=== PATIENT | female | born 1935 | race Two or more races ===

== ENCOUNTER → 2017-09-12 | Outpatient (CLI) | payer MEDICARE ==
[2017-09-12 09:09] LABS: ADD MAN DIFF? NO
[2017-09-12 09:13] LABS: BASO % 0 % (0-3); EOS % 1 % (0-3); HEMATOCRIT 35.6 % (36.0-47.0); HEMOGLOBIN 12.2 g/dL (12.0-15.5); LYMPH # 1.1 x10^3/uL (1.0-4.8); LYMPH % 23 % (24-48); MEAN CORPUSCULAR HEMOGLOBIN 33 pg (25-35); MEAN CORPUSCULAR HGB CONC 34 g/dL (31-37); MEAN CORPUSCULAR VOLUME 97 fL (79-100); MONO # 0.4 x10^3/uL (0.0-1.1); MONO % 9 % (0-9); NEUT # 3.3 x10^3uL (1.8-7.7); NEUT % 67 % (31-73); PLATELET COUNT 244 x10^3/uL (140-400); RED BLOOD COUNT 3.69 x10^6/uL (3.50-5.40); RED CELL DISTRIBUTION WIDTH 13.3 % (11.5-14.5); WHITE BLOOD COUNT 4.9 x10^3/uL (4.0-11.0)
[2017-09-12 09:29] LABS: ALBUMIN 3.3 g/dL (3.4-5.0); ANION GAP 9 (6-14); BLOOD UREA NITROGEN 26 mg/dL (7-20); CALCIUM 8.8 mg/dL (8.5-10.1); CARBON DIOXIDE 28 mmol/L (21-32); CHLORIDE 105 mmol/L (98-107); CREATININE 1.3 mg/dL (0.6-1.0); GFR 39.3; GLUCOSE 126 mg/dL (70-99); POTASSIUM 4.5 mmol/L (3.5-5.1); SODIUM 142 mmol/L (136-145)
[2017-09-12 09:34] LABS: INR 1.8 (0.8-1.1); PARTIAL THROMBOPLASTIN TIME 37 SEC (24-38); PROTHROMBIN TIME PATIENT 20.5 SEC (11.7-14.0)
[2017-09-12 10:12] LABS: BILIRUBIN,URINE NEGATIVE (NEG); CLARITY,URINE CLEAR; COLOR,URINE YELLOW; GLUCOSE,URINE NEGATIVE (NEG); NITRITE,URINE NEGATIVE (NEG); PROTEIN,URINE NEGATIVE (NEG-TRACE)
[2017-09-12 10:34] LABS: RBC,URINE 0 /HPF (0-2)
[2017-09-12 10:35] LABS: BACTERIA,URINE 0 /HPF (0-FEW); SQUAMOUS EPITHELIAL CELL,UR FEW /LPF
[2017-09-12 11:33] LABS: SEDIMENTATION RATE 50 (0-25)
[2017-09-15 11:58] LABS: MRSA BY PCR Negative (Negative)
== END | disposition home or self-care (01) ==
LOC: SURGPAT 13:23
DX: Z01.818 Encounter for other preprocedural examination (principal); I10 Essential (primary) hypertension; I70.0 Atherosclerosis of aorta; E55.9 Vitamin D deficiency, unspecified; R79.1 Abnormal coagulation profile
CPT/HCPCS: 36415; 71046; 80048; 81001; 82040; 82306; 85025; 85610; 85651; 85730; 87086

== ENCOUNTER 2017-09-27 05:32 | Inpatient (IN) | payer MEDICARE ==
[~2017-09-27 05:32] MED LIST: TOBRAMYCIN POWDER 1.2 GM VIAL.; VANCOMYCIN 1 GM VIAL.
[2017-09-27] MEDS ORDERED: CLINDAMYCIN 900MG PREMIX 0 ML IV (06:17)
[2017-09-27] MEDS ORDERED: CLINDAMYCIN 900MG PREMIX 50 ML IV (06:30)
[2017-09-27] MEDS ORDERED: ACETAMINOPHEN 500 MG TABLET PO (06:30)
[2017-09-27] MEDS: IV RINGERS,LACTATED 1000ML 1,000 ML IV (06:41)
[2017-09-27] MEDS: ACETAMINOPHEN 500 MG TABLET PO (06:43)
[2017-09-27] MEDS ORDERED: DEXAMETHASONE SOD PHOS 20 MG/5 ML VIAL. (07:00)
[2017-09-27] MEDS ORDERED: fentaNYL PF VIAL 100 MCG/2 ML VIAL ×3 (07:00→09:57)
[2017-09-27] MEDS ORDERED: ONDANSETRON PF 4 MG/2 ML VIAL. (07:00)
[2017-09-27] MEDS ORDERED: LIDOCAINE 2% PF Vial for OR 5 ML VIAL. (07:00)
[2017-09-27] MEDS ORDERED: FAMOTIDINE 20 MG/2 ML VIAL (07:00)
[2017-09-27] MEDS ORDERED: ROCURONIUM 50 MG/5 ML VIAL. (07:00)
[2017-09-27] MEDS ORDERED: LIDOCAINE 1% PF 2 ML VIAL. ID (07:00)
[2017-09-27] MEDS ORDERED: PROPOFOL 20 ML IV (07:00)
[2017-09-27] MEDS ORDERED: MORPHINE SULFATE 2 MG/ML DISP.SYRIN. IV (07:00)
[2017-09-27] MEDS ORDERED: HYDROmorphone 2 MG/ML VIAL IV (07:00)
[2017-09-27] MEDS ORDERED: ePHEDrine PF IN SALINE 50 MG/5 ML DISP.SYRIN IV (07:37)
[2017-09-27] MEDS: TRANEXAMIC ACID 1,000 MG in IV NORMAL SALINE 50ML 50 ML INJ ×2 (07:40→08:48)
[2017-09-27] MEDS: VANCOMYCIN 1 GM VIAL. TP (07:58)
[2017-09-27] MEDS: TOBRAMYCIN POWDER 1.2 GM VIAL. TP (07:58)
[2017-09-27] MEDS ORDERED: hydrALAZINE 20 MG/ML VIAL. (08:13)
[2017-09-27] MEDS ORDERED: NEOSTIGMINE METHYLSULFATE 5 MG/5 ML SYRINGE. (09:09)
[2017-09-27] MEDS ORDERED: GLYCOPYRROLATE 1 MG/5 ML VIAL. (09:09)
[2017-09-27] MEDS ORDERED: DESFLURANE > 120 MINUTES IH (09:13)
[2017-09-27] MEDS ORDERED: ZOLPIDEM 5 MG TABLET. PO (09:45)
[2017-09-27] MEDS ORDERED: MORPHINE SULFATE 4 MG/ML DISP.SYRIN. IV ×2 (09:45)
[2017-09-27] MEDS ORDERED: diphenhydrAMINE 50 MG/ML VIAL IV (09:45)
[2017-09-27] MEDS ORDERED: oxyCODONE/APAP 5/325 1 TAB TABLET PO (09:45)
[2017-09-27] MEDS ORDERED: ACETAMINOPHEN 325 MG TABLET. PO (09:45)
[2017-09-27] MEDS ORDERED: METOCLOPRAMIDE HCL 10 MG/2 ML VIAL. IV (09:45)
[2017-09-27] MEDS ORDERED: LORazepam 0.5 MG TABLET PO (09:45)
[2017-09-27] MEDS ORDERED: 0.9 % SODIUM CHLORIDE 10 ML DISP.SYRIN. IV (09:45)
[2017-09-27] MEDS ORDERED: traMADol 50 MG TABLET PO (09:45)
[2017-09-27] MEDS ORDERED: fentaNYL PF VIAL 100 MCG/2 ML VIAL IV ×2 (09:45)
[2017-09-27] MEDS ORDERED: CALCIUM CARBONATE 500 MG TAB.CHEW PO (09:45)
[2017-09-27] MEDS ORDERED: DEXTROSE 50% 25 GM / 50ML DISP.SYRIN. IV (09:45)
[2017-09-27] MEDS ORDERED: MORPHINE SULFATE 10 MG/ML VIAL. IV (09:45)
[2017-09-27] MEDS: fentaNYL PF VIAL 100 MCG/2 ML VIAL IV ×4 (10:10→12:48)
[2017-09-27] MEDS ORDERED: PROCHLORPERAZINE 10 MG/2 ML VIAL. (10:30)
[2017-09-27 10:36] LABS: POC GLUCOSE 198 mg/dL (70-99)
[2017-09-27] MEDS: PROCHLORPERAZINE 10 MG/2 ML VIAL. IV (10:48)
[2017-09-27] MEDS ORDERED: CLINDAMYCIN PREMIX 900 MG/50 ML BAG IV (12:00)
[2017-09-27] MEDS: PROPAFENONE SR 225 MG CAP.ER.12H. PO ×2 (14:00→21:05)
[2017-09-27] MEDS: CLINDAMYCIN 900MG PREMIX 50 ML IV ×2 (14:51→20:07)
[2017-09-27] MEDS: ONDANSETRON PF 4 MG/2 ML VIAL. IV (16:13)
[2017-09-27 16:31] LABS: POC GLUCOSE 149 mg/dL (70-99)
[2017-09-27] MEDS: FERROUS SULFATE 325 MG TABLET. PO (17:00)
[2017-09-27] MEDS: RIVAROXABAN 15 MG TABLET. PO (17:14)
[2017-09-27 20:49] LABS: POC GLUCOSE 143 mg/dL (70-99)
[2017-09-27] MEDS: SIMVASTATIN 40 MG TABLET. PO (21:03)
[2017-09-27] MEDS: METOPROLOL TART IMMED RELEASE 50 MG TABLET. PO (21:03)
[2017-09-27] MEDS: IV DEXTROSE 5 %-0.45 % NACL 1,000 ML IV ×2 (22:00→22:39)
[2017-09-27] MEDS: HYDROcodone/APAP 7.5/325MG 1 TAB TABLET PO (22:38)
[2017-09-28] MEDS: CLINDAMYCIN 900MG PREMIX 50 ML IV (02:02)
[2017-09-28] MEDS: PROCHLORPERAZINE 5 MG TABLET. PO (02:02)
[2017-09-28] MEDS: HYDROcodone/APAP 7.5/325MG 1 TAB TABLET PO ×2 (04:18→20:53)
[2017-09-28 05:23] LABS: MEAN CORPUSCULAR HGB CONC 34 g/dL (31-37)
[2017-09-28 06:48] LABS: POC GLUCOSE 159 mg/dL (70-99)
[2017-09-28] MEDS: PROCHLORPERAZINE 10 MG/2 ML VIAL. IV (07:53)
[2017-09-28] MEDS: IV DEXTROSE 5 %-0.45 % NACL 1,000 ML IV ×2 (08:00→18:00)
[2017-09-28] MEDS: FERROUS SULFATE 325 MG TABLET. PO ×2 (08:00→17:20)
[2017-09-28] MEDS: MORPHINE SULFATE 4 MG/ML DISP.SYRIN. IV (08:27)
[2017-09-28] MEDS: PROPAFENONE SR 225 MG CAP.ER.12H. PO ×3 (08:31→21:00)
[2017-09-28] MEDS: MULTIVITAMIN with MINERAL TABLET. PO (09:00)
[2017-09-28 11:39] LABS: POC GLUCOSE 168 mg/dL (70-99)
[2017-09-28] MEDS: LISINOPRIL 20 MG TABLET PO (12:27)
[2017-09-28] MEDS: SENNOSIDES/DOCUSATE 8.6/50MG TABLET. PO (12:27)
[2017-09-28] MEDS: oxyCODONE/APAP 7.5/325 1 TAB TABLET PO (12:28)
[2017-09-28] MEDS: HYDROcodone/APAP 10/325 1 TAB TABLET PO (15:04)
[2017-09-28] MEDS ORDERED: BISACODYL 10 MG SUPP.RECT. PR (16:00)
[2017-09-28 16:56] LABS: POC GLUCOSE 145 mg/dL (70-99)
[2017-09-28] MEDS: traMADol 50 MG TABLET PO (17:19)
[2017-09-28] MEDS: RIVAROXABAN 15 MG TABLET. PO (17:20)
[2017-09-28] MEDS: MAGNESIUM HYDROXIDE 2,400 MG/30 ML ORAL.SUSP. PO (20:54)
[2017-09-28] MEDS: SIMVASTATIN 40 MG TABLET. PO (20:54)
[2017-09-28] MEDS: METOPROLOL TART IMMED RELEASE 50 MG TABLET. PO (21:00)
[2017-09-28 21:17] LABS: POC GLUCOSE 134 mg/dL (70-99)
[2017-09-29] MEDS: HYDROcodone/APAP 7.5/325MG 1 TAB TABLET PO ×4 (02:21→21:01)
[2017-09-29 04:44] LABS: HEMATOCRIT 26.5 % (36.0-47.0); HEMOGLOBIN 9.2 g/dL (12.0-15.5); MEAN CORPUSCULAR HGB CONC 35 g/dL (31-37)
[2017-09-29 08:12] LABS: POC GLUCOSE 124 mg/dL (70-99)
[2017-09-29] MEDS: POLYETHYLENE GLYCOL 3350 17 GM PACKET. PO (09:00)
[2017-09-29] MEDS: SENNOSIDES/DOCUSATE 8.6/50MG TABLET. PO (09:22)
[2017-09-29] MEDS: FERROUS SULFATE 325 MG TABLET. PO ×2 (09:22→16:35)
[2017-09-29] MEDS: MULTIVITAMIN with MINERAL TABLET. PO (09:22)
[2017-09-29] MEDS: LISINOPRIL 20 MG TABLET PO (09:23)
[2017-09-29] MEDS: PROPAFENONE SR 225 MG CAP.ER.12H. PO ×3 (09:24→21:00)
[2017-09-29 11:43] LABS: POC GLUCOSE 137 mg/dL (70-99)
[2017-09-29] MEDS: RIVAROXABAN 15 MG TABLET. PO (16:35)
[2017-09-29 16:47] LABS: POC GLUCOSE 140 mg/dL (70-99)
[2017-09-29] MEDS: METOPROLOL TART IMMED RELEASE 50 MG TABLET. PO (21:00)
[2017-09-29] MEDS: SIMVASTATIN 40 MG TABLET. PO (21:00)
[2017-09-30 04:33] LABS: HEMATOCRIT 25.2 % (36.0-47.0); HEMOGLOBIN 8.7 g/dL (12.0-15.5); MEAN CORPUSCULAR HGB CONC 35 g/dL (31-37)
[2017-09-30 05:55] LABS: POC GLUCOSE 120 mg/dL (70-99)
[2017-09-30] MEDS: POLYETHYLENE GLYCOL 3350 17 GM PACKET. PO (08:12)
[2017-09-30] MEDS: SENNOSIDES/DOCUSATE 8.6/50MG TABLET. PO (08:14)
[2017-09-30] MEDS: FERROUS SULFATE 325 MG TABLET. PO (08:14)
[2017-09-30] MEDS: MULTIVITAMIN with MINERAL TABLET. PO (08:14)
[2017-09-30] MEDS: PROPAFENONE SR 225 MG CAP.ER.12H. PO ×2 (08:15→14:12)
[2017-09-30] MEDS: HYDROcodone/APAP 7.5/325MG 1 TAB TABLET PO ×2 (08:19→13:02)
[2017-09-30] MEDS: PROCHLORPERAZINE 5 MG TABLET. PO (13:01)
[2017-09-30] MEDS: BISACODYL 10 MG SUPP.RECT. PR (13:02)
== END 2017-09-30 15:05 | disposition home health service (06) | DRG 470 ==
LOC: OPSVCIP 05:32 → 4 SOUTHEST 10:45
PROVIDERS: Orthopaedic Surgery
PROC: 0SRD069 Replacement of Left Knee Joint with Oxidized Zirconium on Polyethylene Synthetic Substitute, Cemented, Open Approach (ICD-10-PCS; principal; 2017-09-27 07:10)
DX: M17.12 Unilateral primary osteoarthritis, left knee (principal); I49.5 Sick sinus syndrome; I48.91 Unspecified atrial fibrillation; I10 Essential (primary) hypertension; E78.5 Hyperlipidemia, unspecified; F41.9 Anxiety disorder, unspecified; Z85.038 Personal history of other malignant neoplasm of large intestine; Z90.49 Acquired absence of other specified parts of digestive tract; Z95.0 Presence of cardiac pacemaker; Z83.3 Family history of diabetes mellitus; Z87.891 Personal history of nicotine dependence; Z88.0 Allergy status to penicillin; Z88.2 Allergy status to sulfonamides; Z88.6 Allergy status to analgesic agent; Z91.040 Latex allergy status; Z91.018 Allergy to other foods; M81.0 Age-related osteoporosis without current pathological fracture
CPT/HCPCS: 36415; 73560; 82962; 85014; 85018; 86850; 86900; 86901; 88304; 88311; 97110-GP; 97116-GP; 97150-GP; 97162-GP; 97166-GO; 97530-GP; 97535-GO; A7015; C1713; J0171; J0360; J0780; J1100; J2270; J2405; J2704; J2710; J2795; J3010; J3260; J3370; J3490; J7030; J7120; Q0164; S0028

== ENCOUNTER 2019-12-30 15:52 | Emergency (ER) | payer MEDICARE ==
[~2019-12-30] VITALS: Ht 154.9 cm; Wt 68.0 kg
[~2019-12-30 15:52] MED LIST changes: +FERR325T14 PO; +HYDR-2761 PO; +IBUP-1027 PO; +LISI-130 PO; +LORA1TAB PO; +METO50TA6 PO; +MULT-658 PO; +ONDA4TAB12 PO; +POLY17PO29 PO; +PROP225T2 PO; +RIVA15TA PO; +SIMV40TA18 PO; -TOBRAMYCIN POWDER 1.2 GM VIAL.; +TRAM50TA PO; -VANCOMYCIN 1 GM VIAL.
[2019-12-30 16:50] VITALS: BP 220/85
--- NOTE | 2019-12-30 17:05 | PHYS DOC ---
Past Medical History Past Medical History: Anxiety, Arrhythmia, High Cholesterol, Hypertension Past Surgical History: Cholecystectomy, Pacemaker Additional Past Surgical Histo: Colon Surgery, back surgery Smoking Status: Former Smoker Alcohol Use: Occasionally Drug Use: None General Adult EDM: Chief Complaint: LOWER BACK PAIN OR INJURY HPI: HPI: Patient is a 84 year old female who presents for evaluation from a ground-level fall. Patient fell on Tuesday ground-level and fell onto her bottom. Patient did not hit her head with loss of consciousness. Patient has no focal weakness or numbness and complains of coccyx pain. Pain is worse with sitting. Pain is nonradiating. Pain is moderate in intensity and described it is as a discomfort. No bowel or bladder incontinence. Review of Systems: Review of Systems: Constitutional: Denies fever or chills. [] Eyes: Denies change in visual acuity. [] HENT: Denies nasal congestion or sore throat. [] Respiratory: Denies cough or shortness of breath. [] Cardiovascular: Denies chest pain or edema. [] GI: Denies abdominal pain, nausea, vomiting, bloody stools or diarrhea. [] : Denies dysuria. [] Musculoskeletal: Complains of coccyx pain but no joint pain. Integument: Denies rash. [] Neurologic: Denies headache, focal weakness or sensory changes. [] Endocrine: Denies polyuria or polydipsia. [] Lymphatic: Denies swollen glands. [] Psychiatric: Denies depression or anxiety. [] Heart Score: Risk Factors: Risk Factors: DM, Current or recent (<one month) smoker, HTN, HLP, family history of CAD, obesity. Risk Scores: Score 0 - 3: 2.5% MACE over next 6 weeks - Discharge Home Score 4 - 6: 20.3% MACE over next 6 weeks - Admit for Clinical Observation Score 7 - 10: 72.7% MACE over next 6 weeks - Early Invasive Strategies Allergies: Allergies: Allergies Coded Allergies Type Severity Reaction Last Updated Verified Penicillins Allergy Intermediate 09/27/17 Yes Sulfa (Sulfonamide Antibiotics) Allergy Intermediate 09/27/17 Yes aspirin Allergy Intermediate 09/27/17 Yes latex Allergy Intermediate 09/27/17 Yes kiwi Adverse Reaction Severe Hives 09/27/17 Yes Physical Exam: PE: Constitutional: Well developed, well nourished, no acute distress, non-toxic appearance. [] HENT: Normocephalic, atraumatic, bilateral external ears normal, no trismus, nose normal. [] Eyes: PERRLA, EOMI, conjunctiva normal, no discharge. [] Neck: Normal range of motion, no tenderness, supple, no stridor. [] Cardiovascular:Heart rate regular rhythm, peripheral pulses intact cap refill brisk Lungs & Thorax: Bilateral breath sounds clear no respiratory distress Abdomen: , soft, no tenderness, no masses, no pulsatile masses. [] Skin: Warm, dry, no erythema, no rash. [] Back: No lumbar tenderness tender to palpate in the sacrococcyx area. Extremities: No tenderness, no cyanosis, no clubbing, ROM intact, no edema. [] Neurologic: Alert and oriented X 3, normal motor function, normal sensory function, no focal deficits noted. [] Psychologic: Affect normal, judgement normal, mood normal. [] EKG: EKG: [] Radiology/Procedures: Radiology/Procedures: [][facility] [address] [place] [address] IMAGING REPORT Signed PATIENT: MIKIE JOSEPH AACCOUNT: [id number] : 1935 LOCATION: ER AGE: 84 SEX: F EXAM STATUS: REG ER ORD. PHYSICIAN: YANDEL DHALIWAL MD REASON: fall PROCEDURE: SACRUM & COCCYX 3V Exam: Sacrum 2 views INDICATION: Fall TECHNIQUE: Frontal and lateral views of the sacrum and coccyx Comparisons: None FINDINGS: There is diffuse osteopenia. Cortical step-off is noted at the lower sacrum. Soft tissues are unremarkable. Joint spaces are well-maintained. IMPRESSION: Cortical step-off at the lower sacrum, may relate to a mildly displaced fracture. Electronically signed by: Dayday Sanchez MD (12/30/2019 5:35 PM) [id number] DICTATED and SIGNED BY: DAYDAY SANCHEZ MD DATE: 12/30/19 1735 Course & Med Decision Making: Course & Med Decision Making Pertinent Labs and Imaging studies reviewed. (See chart for details) [] 84-year-old female with a ground-level fall and a lower sacral fracture. Patient neurologically intact. Discussed with patient donut amandaousmane and will get a prescription for pain medicine and stool softener.. Return precautions given. Fan Disclaimer: Fan Disclaimer: This electronic medical record was generated, in whole or in part, using a voice recognition dictation system. Departure Departure Impression: Primary Impression: Sacral fracture, closed Disposition: 01 HOME, SELF-CARE Condition: STABLE Referrals: ROSALES WEAVER Jr, MD (PCP) ANDRES POSADAS MD 2-3 days Patient Instructions: Tailbone Injury Additional Instructions: EMERGENCY DEPARTMENT GENERAL DISCHARGE INSTRUCTIONS THANK YOU for coming to [facility] Emergency Department (ED) today and trusting us with your care. We trust that you had a positive experience in our Emergency Department. If you wish to speak to the department Management you can contact the title department manager at . YOUR FOLLOW UP INSTRUCTIONS ARE FOLLOWS: Do you have a private doctor? If you do not have a private doctor, please ask for a resource list of physicians or clinics that may be able to assist you with follow up care. The Emergency Physician has interpreted your x-rays. The X-ray specialist will also review them. If there is a change in the findings you will be notified in 48 hours when at all possible. A lab test or lab culture may have been done, your results will be reviewed and you will be notified if you need a change in treatment. ADDITIONAL INSTRUCTIONS AND INFORMATION Your care today has been supervised by a physician who is specially trained in emergency care. Many problems require more than one evaluation for a complete diagnosis and treatment. We recommend that you schedule your follow up appointment as recommended to ensure complete treatment of your illness or injury. If you are unable to obtain follow up care and continue to have a problem, or if your condition worsens we recommend that you return to the ED. We are not able to safely determine your condition over the phone nor are we able to give sound medical advice over the phone. For these safety reasons, if you call for medical advice we will ask you to come to the ED for further evaluation If you have any questions regarding these discharge instructions please call the ED at . SAFETY INFORMATION In the interest of safety, wellness, and injury prevention; we encourage you to wear your seatbelt, if you smoke; quit smoking, and we encourage your family to use protective helmet for bicycling and other sporting events that present an increased risk for head injury. IF YOUR SYMPTOMS WORSEN OR NEW SYMPTOMS DEVELOP, OR YOU HAVE CONCERNS ABOUT YOUR CONDITION; OR IF YOUR CONDITION WORSENS WHILE YOU ARE WAITING FOR YOUR FOLLOW UP APPOINTMENT; EITHER CONTACT YOUR PRIMARY CARE DOCTOR, THE PHYSICIAN WHOSE NAME AND NUMBER YOU WERE GIVEN, OR RETURN TO THE ED IMMEDIATELY. Scripts Docusate Sodium (COLACE) 100 Mg Capsule 1 CAP PO BID for 15 Days, #30 CAP 0 Refills Prov: YANDEL DHALIWAL MD 12/30/19 Hydrocodone/Apap 5-325 (NORCO 5-325 TABLET) 1 Each Tablet 0.5 TAB PO PRN Q6HRS PRN for PAIN, #10 TAB 0 Refills Prov: YANDEL DHALIWAL MD 12/30/19 Justicifation of Admission Dx: Justifications for Admission: Justification of Admission Dx: N/A YANDEL DHALIWAL MD Dec 30, 2019 17:05
--- NOTE | 2019-12-30 17:37 | RAD ---
Exam: Sacrum 2 views INDICATION: Fall TECHNIQUE: Frontal and lateral views of the sacrum and coccyx Comparisons: None FINDINGS: There is diffuse osteopenia. Cortical step-off is noted at the lower sacrum. Soft tissues are unremarkable. Joint spaces are well-maintained. IMPRESSION: Cortical step-off at the lower sacrum, may relate to a mildly displaced fracture. Electronically signed by: Dayday Willis MD (12/30/2019 5:35 PM) [id number]
[2019-12-30] MEDS ORDERED: DOCU-109 PO (17:46)
[2019-12-30] MEDS ORDERED: HYDR-3164 PO (17:46)
== END 2019-12-30 18:45 | disposition home or self-care (01) ==
LOC: ER 15:52
DX: S32.19XA Other fracture of sacrum, initial encounter for closed fracture (principal); F41.9 Anxiety disorder, unspecified; E78.00 Pure hypercholesterolemia, unspecified; I10 Essential (primary) hypertension; Z95.0 Presence of cardiac pacemaker; Z90.49 Acquired absence of other specified parts of digestive tract; Z98.890 Other specified postprocedural states; Z87.891 Personal history of nicotine dependence; Z88.0 Allergy status to penicillin; Z88.2 Allergy status to sulfonamides; Z91.040 Latex allergy status; Z91.018 Allergy to other foods; W18.39XA Other fall on same level, initial encounter; Y93.89 Activity, other specified; Y92.89 Other specified places as the place of occurrence of the external cause; Y99.8 Other external cause status
CPT/HCPCS: 72220; 99284

== ENCOUNTER 2020-07-16 01:26 | Emergency (ER) | payer MEDICARE ==
[~2020-07-16] VITALS: Ht 152.4 cm; Wt 70.0 kg
[~2020-07-16 01:26] MED LIST changes: +DOCU-109 PO; +HYDR-3164 PO
--- NOTE | 2020-07-16 01:37 | PHYS DOC ---
Past Medical History Past Medical History: Anxiety, Arrhythmia, High Cholesterol, Hypertension Past Surgical History: Cholecystectomy, Knee Replacement, Pacemaker Additional Past Surgical Histo: Colon Surgery, back surgery Smoking Status: Never Smoker Alcohol Use: None Drug Use: None General Adult EDM: Chief Complaint: SHORTNESS OF BREATH HPI: HPI: 84F with PMH of HTN, HL, SSS s/p pacemaker, AF on xarelto, colon CA s/p resection, p/w SOA. Reports a few days of SOA, worsened with exertion. A/w subjective fever at home. No CP or significant URI Sx. Did have the first COVID19 vaccine about 1 week ago. On xarelto for Hx AF, though taken off for three days (today being day 3) due to epistaxis. Review of Systems: Review of Systems: Gen: Reports fatigue, subjective fever. Eyes: No blurred vision, diplopia. ENT: No nasal congestion, sore throat. CV: No CP, palpitations. Resp. No cough. Reports dyspnea. GI: No abd pain, N/V. Neuro: No SWENSON, dizziness, weakness. MSK: No myalgia, arthralgia. Skin: No acute rash or lesion. Remainder of systems reviewed and negative unless otherwise specified. Heart Score: Risk Factors: Risk Factors: DM, Current or recent (<one month) smoker, HTN, HLP, family history of CAD, obesity. Risk Scores: Score 0 - 3: 2.5% MACE over next 6 weeks - Discharge Home Score 4 - 6: 20.3% MACE over next 6 weeks - Admit for Clinical Observation Score 7 - 10: 72.7% MACE over next 6 weeks - Early Invasive Strategies Allergies: Allergies: Allergies Coded Allergies Type Severity Reaction Last Updated Verified Penicillins Allergy Intermediate 09/27/17 Yes Sulfa (Sulfonamide Antibiotics) Allergy Intermediate 09/27/17 Yes aspirin Allergy Intermediate 09/27/17 Yes latex Allergy Intermediate 09/27/17 Yes kiwi Adverse Reaction Severe Hives 09/27/17 Yes Physical Exam: PE: Gen: NAD. Head: NC/AT. Eyes: No scleral icterus. No conjunctival injection. ENT: MMM. Posterior OP clear. Neck: Supple. NT. CV: RRR. Peripheral pulses intact. Resp: CTAB. Abd: Soft. NT. ND. MSK: No peripheral cyanosis. No edema. Neuro: Awake and alert. Skin. Warm. Dry. Psych: Appropriate mood & affect. Current Patient Data: Labs: Laboratory Tests Test 07/16/20 01:53 White Blood Count 3.4 x10^3/uL (4.0-11.0) Red Blood Count 3.28 x10^6/uL (3.50-5.40) Hemoglobin 10.9 g/dL (12.0-15.5) Hematocrit 32.5 % (36.0-47.0) Mean Corpuscular Volume 99 fL (79-100) Mean Corpuscular Hemoglobin 33 pg (25-35) Mean Corpuscular Hemoglobin Concent 34 g/dL (31-37) Red Cell Distribution Width 12.9 % (11.5-14.5) Platelet Count 180 x10^3/uL (140-400) Neutrophils (%) (Auto) 44 % (31-73) Lymphocytes (%) (Auto) 42 % (24-48) Monocytes (%) (Auto) 10 % (0-9) Eosinophils (%) (Auto) 4 % (0-3) Basophils (%) (Auto) 1 % (0-3) Neutrophils # (Auto) 1.5 x10^3/uL (1.8-7.7) Lymphocytes # (Auto) 1.4 x10^3/uL (1.0-4.8) Monocytes # (Auto) 0.3 x10^3/uL (0.0-1.1) Eosinophils # (Auto) 0.1 x10^3/uL (0.0-0.7) Basophils # (Auto) 0.0 x10^3/uL (0.0-0.2) D-Dimer (Aniya) 0.67 ug/mlFEU (0.00-0.50) Sodium Level 140 mmol/L (136-145) Chloride Level 105 mmol/L (98-107) Carbon Dioxide Level 26 mmol/L (21-32) Anion Gap 9 (6-14) Blood Urea Nitrogen 26 mg/dL (7-20) Estimated GFR (Cockcroft-Gault) 33.1 BUN/Creatinine Ratio 17 (6-20) Glucose Level 118 mg/dL (70-99) Calcium Level 8.8 mg/dL (8.5-10.1) Total Bilirubin 0.4 mg/dL (0.2-1.0) Aspartate Amino Transf (AST/SGOT) 24 U/L (15-37) Alkaline Phosphatase 52 U/L (46-116) Troponin I Quantitative < 0.017 ng/mL (0.000-0.055) Total Protein 6.6 g/dL (6.4-8.2) Albumin 3.5 g/dL (3.4-5.0) Albumin/Globulin Ratio 1.1 (1.0-1.7) EKG: EKG: EKG at 0153. NSR. HR 63. LBBB. Nonspecific ST-T changes. No STEMI criteria met. Interp by me. Radiology/Procedures: Radiology/Procedures: PROCEDURE: PORTABLE CHEST 1V Study: XR CHEST 1V Indication: Shortness of air. Comparison: 09/12/2017 Findings: Right chest wall dual-lead pacer. The cardiomediastinal silhouette is within normal limits for size given AP technique. Aortic atherosclerotic calcifications. No overt central vascular congestion. No confluent airspace infiltrate, layering effusion or pneumothorax. Markings but similar to the prior noting differences in technique and decreased lung volumes. Impression: Nonspecific increased interstitial markings though potentially in part chronic parenchymal changes given patient age. No confluent infiltrate to suggest an organizing pneumonia or radiographic findings of overt failure/volume overload. Electronically signed by: TANYA MADRID MD (07/16/2020 2:22 AM) [facility] Course & Med Decision Making: Course & Med Decision Making Pertinent Labs and Imaging studies reviewed. (See chart for details) In summary, 84F with PMH of HTN, AF on xarelto, SSS s/p pacemaker, p/w a few days of SOA. Had first COVID19 vaccination 1 week ago. Has been off xarelto for 3 days given recent epistaxis (with plan to resume 07/17). HDS. Mild tachypnea on presentation without hypoxia. EKG shows no acute injury pattern. Labs unrevealing including neg trop. However, dimer elevated at 0.67. Given recently held xarelto, will pursue PE rule out. VQ ordered and remains pending (low GFR precludes patient from undergoing CTAC). 0547: Patient returned to bed 20 following VQ. Patient states her breathing is improved. Remains HDS. Anticipated discharge if VQ neg/low probability. Has a previously scheduled appt with her staff nurse anesthetist this afternoon. Signed out to Dr. Peters pending VQ and disposition. Fan Disclaimer: Fan Disclaimer: This electronic medical record was generated, in whole or in part, using a voice recognition dictation system. Departure Departure Impression: Primary Impression: Dyspnea Referrals: ROSALES WEAVER Jr, MD (PCP) Patient Instructions: Shortness of Breath, [id number]-ty-Crbg BERNA CROWE DO Jul 16, 2020 01:37
[2020-07-16 02:03] LABS: BASO % 1 % (0-3); EOS # 0.1 x10^3/uL (0.0-0.7); EOS % 4 % (0-3); HEMATOCRIT 32.5 % (36.0-47.0); HEMOGLOBIN 10.9 g/dL (12.0-15.5); LYMPH # 1.4 x10^3/uL (1.0-4.8); LYMPH % 42 % (24-48); MEAN CORPUSCULAR HEMOGLOBIN 33 pg (25-35); MEAN CORPUSCULAR HGB CONC 34 g/dL (31-37); MEAN CORPUSCULAR VOLUME 99 fL (79-100); MONO # 0.3 x10^3/uL (0.0-1.1); MONO % 10 % (0-9); NEUT # 1.5 x10^3/uL (1.8-7.7); NEUT % 44 % (31-73); PLATELET COUNT 180 x10^3/uL (140-400); RED BLOOD COUNT 3.28 x10^6/uL (3.50-5.40); RED CELL DISTRIBUTION WIDTH 12.9 % (11.5-14.5); WHITE BLOOD COUNT 3.4 x10^3/uL (4.0-11.0)
[2020-07-16 02:10] LABS: CALCIUM 8.8 mg/dL (8.5-10.1); CREATININE 1.5 mg/dL (0.6-1.0); GFR 33.1
--- NOTE | 2020-07-16 02:14 | EKG ---
[facility] [address] [place] [address] Test Date: 2020-07-16 Test Time: 01:53:23 Pat Name: MIKIE JOSEPH Department: Room: Gender: F Alpaca Farmer: : 1935 Requested By: BRENA CROWE Order Number: [id number] Reading MD: Measurements Intervals [place] Rate: 63 P: HI: QRS: -54 QRSD: 200 T: 112 QT: 494 QTc: 509 Interpretive Statements IRREGULAR RHYTHM, NO P-WAVE FOUND ABNORMAL LEFT AXIS DEVIATION NON SPECIFIC INTRAVENTRICULAR BLOCK ABNORMAL ECG RI6.02 No previous ECG available for comparison
[2020-07-16 02:15] LABS: ALBUMIN 3.5 g/dL (3.4-5.0); ALBUMIN/GLOBULIN RATIO 1.1 (1.0-1.7); MAGNESIUM 2.2 mg/dL (1.8-2.4); TOTAL BILIRUBIN 0.4 mg/dL (0.2-1.0); TOTAL PROTEIN 6.6 g/dL (6.4-8.2)
--- NOTE | 2020-07-16 02:24 | RAD ---
Study: XR CHEST 1V Indication: Shortness of air. Comparison: 09/12/2017 Findings: Right chest wall dual-lead pacer. The cardiomediastinal silhouette is within normal limits for size given AP technique. Aortic atherosc lerotic calcifications. No overt central vascular congestion. No confluent airspace infiltrate, layering effusion or pneumothorax. Markings but similar to the prio r noting differences in technique and decreased lung volumes. Impression: Nonspecific increased interstitial markings though potentially in part chronic parenchymal changes gi jaqui patient age. No confluent infiltrate to suggest an organizing pneumonia or radiographic findings of overt failure/volume overload. Electronically signed by: TANYA MADRID MD (07/16/2020 2:22 AM) [facility]
[2020-07-16] MEDS ORDERED: IV NORMAL SALINE 500ML BAG 500 ML IV ONE (02:30)
--- NOTE | 2020-07-16 06:07 | RAD ---
Study: NUCLEAR MEDICINE PERFUSION SCAN History: Shortness of air. Comparison: Correlation is made to a same day single view chest radiograph. Technique: Perfusion only scan performed after the intravenous administration of 5.5 mCi Technetium 9 9m MAA. Multiple projection planar images of the lungs were obtained. Findings: When correlating with the same day chest radiograph, no mismatched perfusion defect on the right or l eft. Nonsegmental perfusion defects related to a right chest wall pacer in the heart. IMPRESSION: Very low probability for pulmonary embolism. Electronically signed by: TANYA MADRID MD (07/16/2020 6:05 AM) [facility]
[2020-07-16 06:26] VITALS: BP 159/70
== END 2020-07-16 06:26 | disposition home or self-care (01) ==
LOC: ER 01:26
DX: R06.02 Shortness of breath (principal); Z20.822 Contact with and (suspected) exposure to COVID-19; R50.9 Fever, unspecified; I10 Essential (primary) hypertension; E78.00 Pure hypercholesterolemia, unspecified; Z95.0 Presence of cardiac pacemaker; Z88.0 Allergy status to penicillin; Z88.2 Allergy status to sulfonamides; Z88.6 Allergy status to analgesic agent; Z91.040 Latex allergy status; Z91.018 Allergy to other foods
CPT/HCPCS: 36415; 71045; 78580; 80053; 83735; 83880; 84484; 85025; 85379; 93005; 99285; A9540; C9803; U0003

== ENCOUNTER 2021-02-17 08:03 | Emergency (ER) | payer MEDICARE ==
[~2021-02-17] VITALS: Ht 152.4 cm; Wt 71.4 kg
[2021-02-17 09:55] VITALS: BP 190/78
[2021-02-17] MEDS ORDERED: KETOROLAC 15 MG/ML VIAL. IM ONE (10:00)
[2021-02-17] MEDS ORDERED: DEXAMETHASONE 4 MG TABLET PO ONE (10:00)
--- NOTE | 2021-02-17 10:41 | RAD ---
Single AP view of the chest. Comparison: 07/16/2020. Indication: Dizziness Findings: Right subclavian pacemaker is unchanged. The aorta is calcified. The heart is enlarged but stable. T here is no pneumothorax or effusion. No air space or interstitial disease. Impression: 1. No acute cardiopulmonary process. Electronically signed by: Immanuel Eastman MD (02/17/2021 10:39 AM) [id number]
--- NOTE | 2021-02-17 11:12 | PHYS DOC ---
Past Medical History Past Medical History: Anxiety, Arrhythmia, High Cholesterol, Hypertension (CARLOS A VILLANUEVA) Past Surgical History: Cholecystectomy, Knee Replacement, Pacemaker, Other Additional Past Surgical Histo: BACK, KNEE REPLACEMENTS (CARLOS A VILLANUEVA) Smoking Status: Former Smoker Alcohol Use: None Drug Use: None (CARLOS A VILLANUEVA) General Adult EDM: Chief Complaint: LOWER EXT PAIN HPI: HPI: Patient is a pleasant 85 year old female with history of high blood pressure, anxiety and bursitis who presents with left lower extremity and right upper extremity pain. Patient states she had physical therapy yesterday, and feels like she did "too much." She also has bursitis of her right shoulder, which has been bothering her. Last night before she went to bed, she reports that her whole body felt like it was "burning and shaking." Patient states she has not taken any of her medications today. She reports she feels very worried and anxious about her symptoms before bed last night. She denies history of renal impairment. She has no other complaints at this time (CARLOS A VILLANUEVA) Review of Systems: Review of Systems: Constitutional: See HPI Respiratory: Denies cough or shortness of breath. Cardiovascular: Denies chest pain, palpitations or edema. Musculoskeletal: See HPI Psychiatric: See HPI (CARLOS A VILLANUEVA) Heart Score: C/O Chest Pain: No (CARLOS A VILLANUEVA) Current Medications: Current Medications Medications (Trade) Dose Ordered Sig/Fany Start Time Stop Time Status Last Admin Dose Admin Dexamethasone (Decadron) 8 mg 1X ONCE 02/17/21 10:00 02/17/21 10:01 DC 02/17/21 10:30 8 MG Ketorolac Tromethamine (Toradol 15mg Vial) 15 mg 1X ONCE 02/17/21 10:00 02/17/21 10:01 DC 02/17/21 10:28 15 MG (CARLOS A VILLANUEVA) Allergies: Allergies: Allergies Coded Allergies Type Severity Reaction Last Updated Verified Penicillins Allergy Intermediate 09/27/17 Yes Sulfa (Sulfonamide Antibiotics) Allergy Intermediate 09/27/17 Yes aspirin Allergy Intermediate 09/27/17 Yes latex Allergy Intermediate 09/27/17 Yes kiwi Adverse Reaction Severe Hives 09/27/17 Yes (CARLOS A VILLANUEVA) Physical Exam: PE: Constitutional: Well developed, well nourished, no acute distress, non-toxic appearance. Neck: Normal range of motion, no tenderness, supple, no stridor. Cardiovascular:Heart rate regular rhythm, I/ midsystolic murmur. Lungs & Thorax: Bilateral breath sounds clear to auscultation. Skin: Warm, dry, no erythema, no rash. Extremities: Left lower extremity tender to palpation over medial distal thigh just proximal to the knee. Right shoulder range of motion limited secondary to pain. Extremities otherwise no cyanosis, no clubbing, ROM intact, no edema. Neurologic: Alert and oriented x3, normal motor function, normal sensory f unction, no focal deficits noted. Psychologic: Patient expresses anxiety, judgement normal, mood normal. (CARLOS A VILLANUEVA) Current Patient Data: Vital Signs: Vital Signs Date Time Temp Pulse Resp B/P (MAP) Pulse Ox O2 Delivery O2 Flow Rate FiO2 02/17/21 09:55 100.5 70 16 190/78 (115) 95 Room Air 100.5 (CARLOS A VILLANUEVA) EKG: EKG: EKG Interpreted by Dr. Kaur: Regular rate and rhythm 68 bpm with no ectopic beats. Diffuse T wave inversions, no concerning ST-T wave changes. (CARLOS A VILLANUEVA) Radiology/Procedures: Radiology/Procedures: PROCEDURE: PORTABLE CHEST 1V Single AP view of the chest. Comparison: 07/16/2020. Indication: Dizziness Findings: Right subclavian pacemaker is unchanged. The aorta is calcified. The heart is enlarged but stable. There is no pneumothorax or effusion. No air space or interstitial disease. Impression: 1. No acute cardiopulmonary process. Electronically signed by: Immanuel Eastman MD (02/17/2021 10:39 AM) [id number] (CARLOS A VILLANUEVA) Course & Med Decision Making: Course & Med Decision Making Pertinent Labs and Imaging studies reviewed. (See chart for details) Patient systolic blood pressure is elevated in the department, however patient denies having taken her blood pressure medications today as well as feeling anxious. Patient's pain is better after medications administered in the department. She states she no longer feels dizzy, but is worried still. Patient was reassured that her EKG does not show any acute cardiac processes, and that she can speak to her orthopedic doctor about further pain control. Patient instructed to inquire about Covid swab test results tomorrow prior to seeing her orthopedic doctor. (CARLOS A VILLANUEVA) Fan Disclaimer: Fan Disclaimer: This electronic medical record was generated, in whole or in part, using a voice recognition dictation system. (CARLOS A VILLANUEVA) Departure Departure Impression: Primary Impression: Muscle strain Additional Impressions: Bursitis Qualified Codes: M75.51 - Bursitis of right shoulder Hypertension Qualified Codes: I10 - Essential (primary) hypertension Fever Qualified Codes: R50.9 - Fever, unspecified Disposition: HOME / SELF CARE / HOMELESS Condition: STABLE Referrals: CARLY SAMANIEGO MD (PCP) Patient Instructions: Bursitis, Kxzi-gw-Huvx, Muscle Strain, [id number]-[id number] Additional Instructions: Your visit today did not show any acute cardiac process. Your pain should be more well controlled with the anti-inflammatories you are provided with today. Please follow-up with your orthopedic doctor regarding continuing joint pain. Return to the emergency department should you feel dizzy, fall or lose consciousness, or if your pain does not improve. Attending Signature Attending Signature I have reviewed the PA/WIRE TINNER's note and plan of care. I was available for consultation as needed during the patient's visit in the emergency department. I agree with the clinical impression, plan, and disposition. (GANGA KAUR DO) CARLOS A VILLANUEVA Feb 17, 2021 11:12 GANGA KAUR DO Feb 17, 2021 16:23
--- NOTE | 2021-02-17 18:30 | EKG ---
[facility] [address] [place] [address] Test Date: 2021-02-17 Test Time: 09:58:05 Pat Name: MIKIE JOSEPH Department: Room: Gender: F Shelving Supervisor: [id number] : 1935 Requested By: CARLOS A VILLANUEVA Order Number: [id number] Reading MD: Measurements Intervals [place] Rate: 68 P: 60 WI: 278 QRS: 12 QRSD: 88 T: -51 QT: 400 QTc: 430 Interpretive Statements SINUS RHYTHM PROLONGED WI INTERVAL ST & T ABNORMALITY, CONSIDER ANTERIOR ISCHEMIA OR LEFT VENTRICULAR STRAIN INFERIOR ISCHEMIA OR LEFT VENTRICULAR STRAIN ABNORMAL ECG RI6.01 No previous ECG available for comparison
== END 2021-02-17 12:50 | disposition home or self-care (01) ==
LOC: ER 08:03
DX: S86.912A Strain of unspecified muscle(s) and tendon(s) at lower leg level, left leg, initial encounter (principal); U07.1 COVID-19; M75.51 Bursitis of right shoulder; I10 Essential (primary) hypertension; R50.9 Fever, unspecified; E78.00 Pure hypercholesterolemia, unspecified; Z87.891 Personal history of nicotine dependence; R42 Dizziness and giddiness; Z88.0 Allergy status to penicillin; Z88.2 Allergy status to sulfonamides; Z91.040 Latex allergy status; Z88.6 Allergy status to analgesic agent; Z91.018 Allergy to other foods; X50.9XXA Other and unspecified overexertion or strenuous movements or postures, initial encounter; Z95.0 Presence of cardiac pacemaker; Y93.89 Activity, other specified; Y92.89 Other specified places as the place of occurrence of the external cause; Y99.8 Other external cause status
CPT/HCPCS: 71045; 93005; 96372; 99285; J1885; U0003; U0005